=== PATIENT | male | born 1945 | race Caucasian/White ===

== ENCOUNTER → 2017-05-18 | Outpatient (CLI) | payer MEDICARE, BC ==
[2017-05-18 12:48] LABS: APPEARANCE, URINE CLEAR (CLEAR); BACTERIA, URINE AUTO NEGATIVE (NEGATIVE); BILIRUBIN, URINE AUTO NEGATIVE (NEGATIVE); BLOOD, URINE BLOOD NEGATIVE (NEGATIVE); COLOR, URINE YELLOW (YELLOW); GLUCOSE, URINE (UA) AUTO NEGATIVE (NEGATIVE); KETONE, URINE AUTO NEGATIVE (NEGATIVE); LEUKOCYTE ESTERASE, URINE AUTO NEGATIVE (NEGATIVE); NITRITE, URINE AUTO NEGATIVE (NEGATIVE); PROTEIN, URINE AUTO NEGATIVE (NEGATIVE); RBC, URINE AUTO 1 /HPF (0-3); SPECIFIC GRAVITY URINE AUTO 1.017 (1.002-1.035); SQUAMOUS EPITHELIAL CELL UR AU 0 /HPF (0-6); UROBILINOGEN, URINE AUTO 0.2 mg/dL (0.0-2.0); WBC, URINE AUTO 1 /HPF (0-3)
[2017-05-18 12:49] LABS: HEMATOCRIT 47.6 % (42.0-52.0); HEMOGLOBIN 15.9 g/dl (14.0-18.0); MEAN CORPUSCULAR HGB CONC 33.4 g/dl (32.0-36.5); MEAN CORPUSCULAR VOLUME 86.9 fl (80.0-96.0); PLATELET COUNT, AUTOMATED 285 10^3/uL (150-450); RED BLOOD COUNT 5.48 10^6/uL (4.30-6.10); RED CELL DISTRIBUTION WIDTH 12.6 % (11.5-14.5)
[2017-05-18 12:55] LABS: INR 1.07
[2017-05-18 13:20] LABS: ALBUMIN/GLOBULIN RATIO 1.18 (1.00-1.93); ALKALINE PHOSPHATASE 62 U/L (45-117); ALT/SGPT 33 U/L (12-78); ANION GAP 5 MEQ/L (8-16); AST/SGOT 22 U/L (7-37); BILIRUBIN,TOTAL 0.7 MG/DL (0.2-1.0); BLOOD UREA NITROGEN 12 MG/DL (7-18); CALCIUM LEVEL 9.3 MG/DL (8.8-10.2); CARBON DIOXIDE LEVEL 30 MEQ/L (21-32); CHLORIDE LEVEL 104 MEQ/L (98-107); CREATININE FOR GFR 0.51 MG/DL (0.70-1.30); GLOMERULAR FILTRATION RATE > 60.0 (>42); GLUCOSE, FASTING 110 MG/DL (70-100); POTASSIUM SERUM 4.2 MEQ/L (3.5-5.1); SODIUM LEVEL 139 MEQ/L (136-145); TOTAL PROTEIN 7.4 GM/DL (6.4-8.2)
[2017-05-18 14:21] LABS: ERYTHROCYTE SEDIMENTATION RATE 4 mm/hr (0-20)
== END ==
LOC: M ADMPAT 10:24
DX: Z01.818 Encounter for other preprocedural examination (principal); M16.12 Unilateral primary osteoarthritis, left hip; I10 Essential (primary) hypertension; E78.9 Disorder of lipoprotein metabolism, unspecified; I25.2 Old myocardial infarction; Z79.01 Long term (current) use of anticoagulants; Z79.899 Other long term (current) drug therapy
CPT/HCPCS: 71046

== ENCOUNTER 2017-06-01 05:45 | Inpatient (IN) | payer MEDICARE, BC ==
[2017-06-01] MEDS ORDERED: LIDOCAINE 1% MDV 20ML VIAL SQ (06:00)
[2017-06-01] MEDS: LR 1,000 ML IV ×5 (06:40→11:30)
[2017-06-01] MEDS: ACETAMINOPHEN 500 MG TAB PO (06:45)
[2017-06-01] MEDS: ceFAZolin 1GM INJ (J0690 PER 500MG) As Ordered ×2 (07:02)
[2017-06-01] MEDS: EPINEPHrine INJ 1 MG/ML 1ML AMP As Ordered ×2 (07:02)
[2017-06-01] MEDS: TRANEXAMIC ACID 100 MG/ML 10ML VIAL As Ordered (07:02)
[2017-06-01] MEDS: CLINDAMYCIN INJ 900MG/6ML VIAL As Ordered (07:03)
[2017-06-01] MEDS: VANCOMYCIN HCL 1,000 MG, VIAL MATE ADAPTER 1 EACH in D5W 250 ML IV ×2 (07:06→18:21)
[2017-06-01] MEDS ORDERED: PROPOFOL 200 MG/20 ML VIAL As Ordered (07:11)
[2017-06-01] MEDS ORDERED: MIDAZOLAM INJ 2 MG/2 ML VIAL (J2250) As Ordered ×3 (07:11→08:07)
[2017-06-01] MEDS ORDERED: fentaNYL 100 MCG/2 ML INJECTION (J3010) As Ordered (07:11)
[2017-06-01] MEDS ORDERED: PHENYLephrine HCL 500 MCG/5 ML (100MCG/ML) SYRINGE (J2370) As Ordered (08:25)
[2017-06-01] MEDS ORDERED: ePHEDrine SULFATE 25 MG/5 ML(5MG/ML) SYRINGE As Ordered (08:47)
[2017-06-01] MEDS ORDERED: fentaNYL 100 MCG/2 ML INJECTION (J3010) IV ×2 (10:00→11:30)
[2017-06-01] MEDS ORDERED: ONDANSETRON 4MG/2ML VIAL (J2405) IV ×3 (10:00→11:30)
[2017-06-01] MEDS ORDERED: FLEET ENEMA PR (10:15)
[2017-06-01] MEDS ORDERED: ACETAMINOPHEN TAB 650MG DOSE (2X325MG) PO (10:15)
[2017-06-01] MEDS ORDERED: MORPHINE 1MG/ML IN 0.9% NACL 100ML IV BAG As Ordered (10:28)
[2017-06-01] MEDS ORDERED: MORPHINE 1MG/ML IN 0.9% NACL 100ML IV BAG IV (11:30)
[2017-06-01] MEDS ORDERED: EPIDURAL/PCA KEYS XX (11:30)
[2017-06-01] MEDS ORDERED: NALBUPHINE HCL 10 MG/ML AMP (J2300) IV (11:30)
[2017-06-01] MEDS ORDERED: diphenhydrAMINE INJ 50MG/ML VIAL (J1200) IV (11:30)
[2017-06-01] MEDS ORDERED: NALOXONE INJ 0.4 MG/1 ML VIAL (J2310) IV (11:30)
[2017-06-01] MEDS: ASPIRIN 81 MG CHEW TABLET PO (12:46)
[2017-06-01 17:40] LABS: HEMATOCRIT 41.3 % (42.0-52.0); MEAN CORPUSCULAR HEMOGLOBIN 29.7 pg (27.0-33.0); MEAN CORPUSCULAR HGB CONC 33.9 g/dl (32.0-36.5); MEAN CORPUSCULAR VOLUME 87.7 fl (80.0-96.0); PLATELET COUNT, AUTOMATED 229 10^3/uL (150-450); RED BLOOD COUNT 4.71 10^6/uL (4.30-6.10); RED CELL DISTRIBUTION WIDTH 12.6 % (11.5-14.5); WHITE BLOOD COUNT 14.3 10^3/uL (4.0-10.0)
[2017-06-01 17:55] LABS: ANION GAP 7 MEQ/L (8-16); BLOOD UREA NITROGEN 10 MG/DL (7-18); CALCIUM LEVEL 8.5 MG/DL (8.8-10.2); CARBON DIOXIDE LEVEL 29 MEQ/L (21-32); CHLORIDE LEVEL 105 MEQ/L (98-107); CREATININE FOR GFR 0.51 MG/DL (0.70-1.30); GLOMERULAR FILTRATION RATE > 60.0 (>42); GLUCOSE, FASTING 163 MG/DL (70-100); MAGNESIUM LEVEL 1.6 MG/DL (1.8-2.4); POTASSIUM SERUM 3.7 MEQ/L (3.5-5.1); SODIUM LEVEL 141 MEQ/L (136-145)
[2017-06-01] MEDS: ATORVASTATIN 20 MG TAB PO (21:48)
[2017-06-01] MEDS: FINASTERIDE 5 MG TAB PO (21:48)
[2017-06-01] MEDS: ONDANSETRON 4 MG ORAL DISINTEGRATING TAB (S0181) PO (21:54)
[2017-06-01] MEDS: PERCOCET 5MG/325MG TAB PO (21:54)
[2017-06-01] MEDS: SOTALOL 40MG PER 1/2 TABLET PO (21:54)
[2017-06-02] MEDS: PERCOCET 5MG/325MG TAB PO ×5 (01:54→21:53)
[2017-06-02] MEDS: ONDANSETRON 4 MG ORAL DISINTEGRATING TAB (S0181) PO (06:27)
[2017-06-02 07:01] LABS: HEMATOCRIT 39.8 % (42.0-52.0); HEMOGLOBIN 13.5 g/dl (14.0-18.0); MEAN CORPUSCULAR HEMOGLOBIN 29.4 pg (27.0-33.0); MEAN CORPUSCULAR HGB CONC 33.9 g/dl (32.0-36.5); MEAN CORPUSCULAR VOLUME 86.7 fl (80.0-96.0); PLATELET COUNT, AUTOMATED 242 10^3/uL (150-450); RED BLOOD COUNT 4.59 10^6/uL (4.30-6.10); RED CELL DISTRIBUTION WIDTH 12.9 % (11.5-14.5); WHITE BLOOD COUNT 12.3 10^3/uL (4.0-10.0)
[2017-06-02 07:22] LABS: ANION GAP 8 MEQ/L (8-16); BLOOD UREA NITROGEN 12 MG/DL (7-18); CALCIUM LEVEL 8.5 MG/DL (8.8-10.2); CARBON DIOXIDE LEVEL 28 MEQ/L (21-32); CHLORIDE LEVEL 104 MEQ/L (98-107); CREATININE FOR GFR 0.57 MG/DL (0.70-1.30); GLOMERULAR FILTRATION RATE > 60.0 (>42); GLUCOSE, FASTING 134 MG/DL (70-100); POTASSIUM SERUM 3.5 MEQ/L (3.5-5.1); SODIUM LEVEL 140 MEQ/L (136-145)
[2017-06-02] MEDS: MOM 30ML SUSPENSION UDC PO (09:17)
[2017-06-02] MEDS: MIRALAX *UNIT DOSE* 17GM PACKET PO (09:17)
[2017-06-02] MEDS: QUINAPRIL 20 MG TAB PO (09:17)
[2017-06-02] MEDS: MULTIVITAMINS/MINERALS THERAP 1 TAB PO (09:17)
[2017-06-02] MEDS: ASPIRIN 81 MG ENTERIC TAB PO (09:18)
[2017-06-02] MEDS: amLODIPine 5 MG TAB PO (09:18)
[2017-06-02] MEDS: SOTALOL HCL 80 MG TAB PO (09:18)
[2017-06-02] MEDS: VITAMIN D 1,000 INTERNATIONAL UNITS TABLET PO (09:18)
[2017-06-02] MEDS: SENOKOT S TAB PO ×2 (09:18→21:52)
[2017-06-02] MEDS: ATORVASTATIN 20 MG TAB PO (21:52)
[2017-06-02] MEDS: SOTALOL 40MG PER 1/2 TABLET PO (21:52)
[2017-06-02] MEDS: FINASTERIDE 5 MG TAB PO (21:52)
[2017-06-03] MEDS: PERCOCET 5MG/325MG TAB PO ×3 (05:57→20:19)
[2017-06-03 06:10] LABS: HEMATOCRIT 38.6 % (42.0-52.0); HEMOGLOBIN 12.9 g/dl (14.0-18.0); MEAN CORPUSCULAR HEMOGLOBIN 29.8 pg (27.0-33.0); MEAN CORPUSCULAR HGB CONC 33.4 g/dl (32.0-36.5); MEAN CORPUSCULAR VOLUME 89.1 fl (80.0-96.0); PLATELET COUNT, AUTOMATED 219 10^3/uL (150-450); RED BLOOD COUNT 4.33 10^6/uL (4.30-6.10); RED CELL DISTRIBUTION WIDTH 12.8 % (11.5-14.5); WHITE BLOOD COUNT 14.2 10^3/uL (4.0-10.0)
[2017-06-03 06:47] LABS: ANION GAP 4 MEQ/L (8-16); BLOOD UREA NITROGEN 14 MG/DL (7-18); CALCIUM LEVEL 8.4 MG/DL (8.8-10.2); CARBON DIOXIDE LEVEL 33 MEQ/L (21-32); CHLORIDE LEVEL 101 MEQ/L (98-107); CREATININE FOR GFR 0.58 MG/DL (0.70-1.30); GLOMERULAR FILTRATION RATE > 60.0 (>42); GLUCOSE, FASTING 137 MG/DL (70-100); POTASSIUM SERUM 4.1 MEQ/L (3.5-5.1); SODIUM LEVEL 138 MEQ/L (136-145)
[2017-06-03] MEDS: QUINAPRIL 20 MG TAB PO (11:22)
[2017-06-03] MEDS: MOM 30ML SUSPENSION UDC PO (11:22)
[2017-06-03] MEDS: MIRALAX *UNIT DOSE* 17GM PACKET PO (11:22)
[2017-06-03] MEDS: VITAMIN D 1,000 INTERNATIONAL UNITS TABLET PO (11:23)
[2017-06-03] MEDS: amLODIPine 5 MG TAB PO (11:23)
[2017-06-03] MEDS: SOTALOL HCL 80 MG TAB PO (11:23)
[2017-06-03] MEDS: APIXABAN 5 MG TAB (ELIQUIS) PO ×2 (11:23→20:17)
[2017-06-03] MEDS: MULTIVITAMINS/MINERALS THERAP 1 TAB PO (11:24)
[2017-06-03] MEDS: ASPIRIN 81 MG ENTERIC TAB PO (11:24)
[2017-06-03] MEDS: SENOKOT S TAB PO ×2 (11:24→20:17)
[2017-06-03] MEDS: FINASTERIDE 5 MG TAB PO (20:17)
[2017-06-03] MEDS: SOTALOL 40MG PER 1/2 TABLET PO (20:17)
[2017-06-03] MEDS: ATORVASTATIN 20 MG TAB PO (20:18)
[2017-06-04] MEDS: PERCOCET 5MG/325MG TAB PO ×2 (05:05→09:34)
[2017-06-04 06:31] LABS: HEMATOCRIT 35.7 % (42.0-52.0); HEMOGLOBIN 12.1 g/dl (14.0-18.0); MEAN CORPUSCULAR HEMOGLOBIN 29.8 pg (27.0-33.0); MEAN CORPUSCULAR HGB CONC 33.9 g/dl (32.0-36.5); MEAN CORPUSCULAR VOLUME 87.9 fl (80.0-96.0); PLATELET COUNT, AUTOMATED 219 10^3/uL (150-450); RED BLOOD COUNT 4.06 10^6/uL (4.30-6.10); RED CELL DISTRIBUTION WIDTH 12.7 % (11.5-14.5); WHITE BLOOD COUNT 12.4 10^3/uL (4.0-10.0)
[2017-06-04 06:46] LABS: ANION GAP 6 MEQ/L (8-16); BLOOD UREA NITROGEN 13 MG/DL (7-18); CALCIUM LEVEL 8.1 MG/DL (8.8-10.2); CARBON DIOXIDE LEVEL 31 MEQ/L (21-32); CHLORIDE LEVEL 101 MEQ/L (98-107); CREATININE FOR GFR 0.47 MG/DL (0.70-1.30); GLOMERULAR FILTRATION RATE > 60.0 (>42); GLUCOSE, FASTING 138 MG/DL (70-100); POTASSIUM SERUM 3.4 MEQ/L (3.5-5.1); SODIUM LEVEL 138 MEQ/L (136-145)
[2017-06-04] MEDS: MULTIVITAMINS/MINERALS THERAP 1 TAB PO (08:09)
[2017-06-04] MEDS: VITAMIN D 1,000 INTERNATIONAL UNITS TABLET PO (08:09)
[2017-06-04] MEDS: amLODIPine 5 MG TAB PO (08:10)
[2017-06-04] MEDS: QUINAPRIL 20 MG TAB PO (08:10)
[2017-06-04] MEDS: ASPIRIN 81 MG ENTERIC TAB PO (08:10)
[2017-06-04] MEDS: APIXABAN 5 MG TAB (ELIQUIS) PO (08:10)
[2017-06-04] MEDS: MOM 30ML SUSPENSION UDC PO (08:13)
[2017-06-04] MEDS: SOTALOL HCL 80 MG TAB PO (08:13)
[2017-06-04] MEDS: MIRALAX *UNIT DOSE* 17GM PACKET PO (08:13)
[2017-06-04] MEDS: SENOKOT S TAB PO (08:13)
== END 2017-06-04 12:13 | disposition home or self-care (01) | DRG 470 ==
LOC: M OR 05:45 → M MS5PR 11:00
PROC: 0SRB02Z Replacement of Left Hip Joint with Metal on Polyethylene Synthetic Substitute, Open Approach (ICD-10-PCS; principal; 2017-06-01 07:30)
DX: M16.12 Unilateral primary osteoarthritis, left hip (principal); E66.9 Obesity, unspecified; I48.0 Paroxysmal atrial fibrillation; N40.0 Benign prostatic hyperplasia without lower urinary tract symptoms; L82.1 Other seborrheic keratosis; E55.9 Vitamin D deficiency, unspecified; E78.5 Hyperlipidemia, unspecified; I10 Essential (primary) hypertension; M51.36 Other intervertebral disc degeneration, lumbar region; I73.9 Peripheral vascular disease, unspecified; R09.82 Postnasal drip; Z96.653 Presence of artificial knee joint, bilateral; Z95.1 Presence of aortocoronary bypass graft; Z87.891 Personal history of nicotine dependence; Z79.01 Long term (current) use of anticoagulants; Z79.82 Long term (current) use of aspirin; Z79.899 Other long term (current) drug therapy; Z88.5 Allergy status to narcotic agent; Z88.1 Allergy status to other antibiotic agents; Z88.8 Allergy status to other drugs, medicaments and biological substances